=== PATIENT | female | born 1975 | race Caucasian/White ===

== ENCOUNTER 2022-03-03 14:54 | Outpatient (RCR) | payer BC, SELFPAY | END 2022-03-20 23:59 | LOC: NS 14:54 | PROVIDERS: PCP Family Medicine; Visit Provider Family Medicine | DX: Z71.3 Dietary counseling and surveillance (principal); E66.9 Obesity, unspecified; Z68.34 Body mass index [BMI] 34.0-34.9, adult | CPT/HCPCS: 97802 ==

== ENCOUNTER 2022-04-20 11:00 | Outpatient (RCR) | payer BC, SELFPAY | END 2022-04-20 23:59 | LOC: NS 11:00 | PROVIDERS: PCP Family Medicine; Visit Provider Family Medicine | DX: Z71.3 Dietary counseling and surveillance (principal); E66.9 Obesity, unspecified; Z68.34 Body mass index [BMI] 34.0-34.9, adult | CPT/HCPCS: 97803 ==

== ENCOUNTER 2022-05-04 09:20 | Outpatient (RCR) | payer BC, SELFPAY | END 2022-05-20 23:59 | LOC: NS 09:20 | PROVIDERS: PCP Family Medicine; Visit Provider Family Medicine | DX: Z71.3 Dietary counseling and surveillance (principal); E66.9 Obesity, unspecified; Z68.34 Body mass index [BMI] 34.0-34.9, adult | CPT/HCPCS: 97803 ==

== ENCOUNTER 2022-06-15 09:00 | Outpatient (RCR) | payer BC, SELFPAY | END 2022-06-20 23:59 | LOC: NS 09:00 | PROVIDERS: PCP Family Medicine; Referring Provider Family Medicine; Visit Provider Family Medicine | DX: Z71.3 Dietary counseling and surveillance (principal); E66.9 Obesity, unspecified; Z68.34 Body mass index [BMI] 34.0-34.9, adult | CPT/HCPCS: 97803 ==

== ENCOUNTER 2022-07-21 16:21 | Outpatient (RCR) | payer BC, SELFPAY | END 2022-07-21 23:59 | LOC: NS 16:21 | PROVIDERS: PCP Family Medicine; Referring Provider Family Medicine; Visit Provider Family Medicine | DX: Z71.3 Dietary counseling and surveillance (principal); E66.9 Obesity, unspecified; Z68.34 Body mass index [BMI] 34.0-34.9, adult | CPT/HCPCS: 97803 ==

== ENCOUNTER 2022-08-03 09:13 | Outpatient (RCR) | payer BC, SELFPAY | END 2022-08-20 23:59 | LOC: NS 09:13 | PROVIDERS: PCP Family Medicine; Referring Provider Family Medicine; Visit Provider Family Medicine | DX: Z71.3 Dietary counseling and surveillance (principal); E66.9 Obesity, unspecified; Z68.34 Body mass index [BMI] 34.0-34.9, adult | CPT/HCPCS: 97803 ==

== ENCOUNTER 2023-01-13 11:09 | Emergency (ER) | payer OTHER, SELFPAY ==
[2023-01-13 11:10] VITALS: BP 153/91; PULSE 114; RESP 16; TEMP 36.6; O2SAT 100; BMI 30.3
--- NOTE | 2023-01-13 11:40 | EKG12_ITS ---
Test Reason : Blood Pressure : / mmHG Vent. Rate : 113 BPM Atrial Rate : 113 BPM P-R Int : 168 ms QRS Dur : 086 ms QT Int : 350 ms P-R-T Axes : 062 011 022 degrees QTc Int : 480 ms Sinus tachycardia Otherwise normal ECG Confirmed by GUS EUCEDA, CARROL ([id number]), manager editorial KRISTINE LANDRUM ([id number]) on 01/17/2023 11:02:07 AM Referred By: DERREK Confirmed By:CARROL WEBER MD
[2023-01-13 13:05] LABS: Anion Gap 10 (5-15); BUN 11 mg/dL (7-18); BUN/Creat Ratio 18.2 RATIO (10-20); Calcium,Total 9.5 mg/dL (8.5-10.1); Chloride 105 mmol/L (98-107); EST Glomerular Filtration Rate 114 mL/min (>60); Est Glom Filt Rate - Afr Amer 138 mL/min (>60); Estimated Creatinine Clearance 123.02 ml/min; Glucose 126 mg/dL (74-106); Potassium 3.1 mmol/L (3.5-5.1); Sodium Level 139 mmol/L (136-145); Thyroid Stim Hormone (TSH) < 0.01 uIU/mL (0.358-3.74)
[2023-01-13 13:50] VITALS: BP 110/64; PULSE 97; RESP 16; O2SAT 98
--- NOTE | 2023-01-13 14:53 | EDS_ITS ---
HPI History of Present Illness Chief Complaint: Palpitations Detail of Chief Complaint: Palpitations and heart rate of 120 Informant: patient Onset/Context/Timing Onset: Today and Yesterday Context: Sudden Onset Timing: Continuous Quality: Rapid heart rate Location: Cardiovascular Current Severity: Mild Maximum Severity: Moderate Worsened by: Nothing Relieved by: Nothing Associated Symptoms Associated Symptoms: 20 to 30 pound weight loss Narrative Narrative: Patient is a 47-year-old woman who presents because of rapid heart rate. She has history of PSVT. She was seen by EP factory engineer 10 years ago. She was placed on metoprolol 12.5 mg twice daily. States recently she has had a rapid heart rate. She denies fever, chills night sweats. She does report a 20 to 30 pound weight loss with no effort. She does report sweats. She denies diarrhea. She denies abdominal pain. She denies any ocular changes or symptoms. She denies headache, ringing or ears or decreased hearing. She denies rhinorrhea, congestion or postnasal drainage. Denies sore throat. She denies chest pain. She denies symptoms. She denies neurologic symptoms. She denies gynecologic symptoms. She is status post hysterectomy. Prior similar symptoms: Yes (10 years ago when diagnosed with PSVT, heart rate was 200.) Recent Illness/Hospitalization: No PFSH PFSH Medical History Anxiety Constipation Diarrhea History of cystocele s/p bladder sling Home Medications metoprolol tartrate 50 mg tablet (Lopressor) 25 mg PO QDAY 10/28/17 [History Last Taken Unknown] sertraline 100 mg tablet (Zoloft) 100 mg PO QDAY 10/28/17 [History Last Taken Unknown] cholecalciferol (vitamin D3) 50 mcg (2,000 unit) capsule (Vitamin D3) 50 mcg PO DAILY 01/13/23 [History Last Taken Unknown] Allergy/AdvReac Type Severity Reaction Status Date / Time codeine Allergy rash Verified 11/18/17 10:29 dicyclomine Allergy rash Verified 11/18/17 10:29 latex Allergy rash Verified 11/18/17 10:29 metoclopramide [From Reglan] Allergy rash Verified 11/18/17 10:29 valacyclovir AdvReac Rash Verified 09/21/22 09:41 Family History Mother Asthma Heart disease Daughter Seizures Father Hypertension Surgical History S/P section S/P hysterectomy Social History (Updated 01/13/23 @ 14:[address] Abdulaziz Lange MD) household members: spouse Smoking Status: Never smoker alcohol intake: never substance use type: does not use ROS ROS ED Constitutional Constitutional ED: Reports sweats and weight loss; Denies chills or fever(s) Eyes Eyes: Denies blurry vision, change in vision or diplopia ENT ENT ED: Denies ear pain, rhinorrhea or sore throat Cardiovascular Cardiovascular: Reports palpitations and racing heartbeat; Denies chest pain or orthopnea Respiratory/Chest Respiratory/Chest: Denies cough, dyspnea, dyspnea on exertion or orthopnea Gastrointestinal Gastrointestinal: Denies diarrhea, nausea or vomiting Genitourinary Genitourinary ED: Denies dysuria, hematuria or urinary frequency Musculoskeletal Musculoskeletal: Denies arthralgias, back pain, myalgias or neck pain Integumentary Denies Abrasions or rash Neurologic Neurologic: Denies paresthesias or weakness Psychiatric Psychiatric: Reports anxiety; Denies depression Endocrine Endocrinology: Denies cold intolerance or heat intolerance Hematologic/Lymphatic Hematologic/Lymphatic: Reports systems reviewed and no addt'l complaints, except as documented EXAM Physical Exam Const Vital Signs: 01/13/23 11:10 01/13/23 11:26 01/13/23 11:27 Temperature 97.8 F Temperature Source Temporal Pulse Rate 114 H Respiratory Rate 16 Respiratory Effort Normal Non-Labored Normal Non-Labored Blood Pressure 153/91 H Blood Pressure Mean 111 Pulse Ox 100 Oxygen Delivery Method Room Air 01/13/23 13:50 Temperature Temperature Source Pulse Rate 97 Respiratory Rate 16 Respiratory Effort Blood Pressure 110/64 Blood Pressure Mean 79 Pulse Ox 98 Oxygen Delivery Method Room Air Positive well nourished, well developed and obese General Appearance ED: well developed and NAD; Negative for cyanotic or diaphoretic Nutritional Appearance: obese HEENT HEENT Narrative: Head is atraumatic normocephalic. Ears are normal. Nares are patent. Posterior pharynx is normal. Eyes PERRL and EOMs intact bilaterally General Eye ED: Negative for pale conjunctiva or scleral icterus Neck no lymphadenopathy, supple and no JVD Chest Wall inspection of chest normal and palpation of chest normal Resp normal respiratory effort and clear to auscultation bilaterally Cardio regular rhythm, S1 normal heart sound, S2 normal heart sound and no murmurs Rate: tachycardic GI normal to inspection, nondistended, normoactive bowel sounds, non-tender, non-d istended and no masses; Negative for hepatosplenomegaly Auscultation: normoactive bowel sounds Back/Spine no CVA tenderness Extremity normal to inspection Neuro oriented x3, CN's II-XII intact bilaterally and no sensory deficits noted Sensorium / Orientation: alert Psych mental status grossly normal Skin no rashes or lesions noted, no wounds and skin turgor normal MDM MDM MDM Narrative Medical decision making narrative: History of PSVT EKG was obtained. Since she had hypokalemia with last episode we will obtain electrolyte panel. With patient losing 20 to 30 pounds easily complained of sweats and now tachycardic not controlled by beta-jarrod will obtain TSH to evaluate for hyperthyroidism. Lab Data Attestation: I reviewed the patient's lab results. Lab results narrative: Electrolyte panel reveals mild hypokalemia. Glucose is 126. TSH is less than 0.01. Labs: Laboratory Results - last 24 hr 01/13/23 11:50 Sodium 139 Potassium 3.1 L Chloride 105 Carbon Dioxide 24.0 Anion Gap 10 BUN 11 Creatinine 0.60 Estim Creat Clear Calc 123.02 Est GFR (MDRD) Af Amer 138 Est GFR (MDRD) Non-Af 114 BUN/Creatinine Ratio 18.2 Glucose 126 H Calcium 9.5 TSH < 0.01 L Rhythm Strip Rhythm Strip: Sinus Tach Rate: 120 Ectopy: None EKG Initial EKG: Attestation: I personally reviewed and interpreted this EKG as follows: Interpretation: Sinus Tachycardia (Heart rate is 113. The EKG is otherwise unremarkable. ME interval is 160 ms. Cures duration 86 ms. QT duration 150 ms. [place] is normal. This was compared to EKG obtained 10 years ago. There was sinus tachycardia noted at that time.) Treatment and Re-Evaluation Narrative: Patient was informed of her results. Dr. Schwartz embedded software programmer was paged. Plan is to increase metoprolol and follow-up with embedded software programmer unless Dr. Schwartz would like other test ordered through the emergency department to facilitate patient's work-up and care. Patient was discharged home at 1517. We will have patient contact Dr. Schwartz's office for additional testing and work-up of hyperthyroidism. She was instructed to increase her metoprolol from 12.5 mg twice daily to 25 mg twice daily. Discharge Plan Triage Chief Complaint: Palpitations ED Provider: Abdulaziz Lange Dx/Rx/DC Orders Clinical Impression: Hyperthyroidism, Acute hypokalemia, Sinus tachycardia, Abnormal weight loss Instructions: ED Hyperthyroidism, ED Hypokalemia Prescriptions: No Action metoprolol tartrate [Lopressor] 50 mg tablet 25 mg PO QDAY sertraline [Zoloft] 100 mg tablet 100 mg PO QDAY cholecalciferol (vitamin D3) [Vitamin D3] 50 mcg (2,000 unit) Capsule 50 mcg PO DAILY Primary Care Provider: Gary Duarte Referrals: Noé Schwartz MD [Med Staff - Courtesy Staff] - 3-5 Days Gary Duarte MD [Primary Care Provider] - Activity Restrictions/Additional Instructions: Increase metoprolol to 1 tablet twice a day. Call Dr. Schwartz's office for outpatient work-up and treatment of hyperthyroidism Disposition Disposition: Home, Self Care
[2023-01-13 15:26] VITALS: BP 121/67; PULSE 94; RESP 16; O2SAT 98
== END 2023-01-13 15:26 | disposition home or self-care (01) ==
PROVIDERS: Emergency Provider Emergency Medicine; PCP Family Medicine; Visit Provider Emergency Medicine
DX: E05.90 Thyrotoxicosis, unspecified without thyrotoxic crisis or storm (principal); E87.6 Hypokalemia; R00.0 Tachycardia, unspecified; F41.9 Anxiety disorder, unspecified; E66.9 Obesity, unspecified; R63.4 Abnormal weight loss
CPT/HCPCS: 80048; 84443; 93005; 99285; A4216

== ENCOUNTER → 2023-01-17 | Outpatient (CLI) | payer OTHER, SELFPAY ==
[2023-01-17 15:43] LABS: Hemoglobin A1c 5.2 % (3.8-5.6)
[2023-01-17 16:16] LABS: Anion Gap 7 (5-15); BUN 12 mg/dL (7-18); BUN/Creat Ratio 22.8 RATIO (10-20); Calcium,Total 9.5 mg/dL (8.5-10.1); Chloride 105 mmol/L (98-107); Cholesterol 197 mg/dL (200); Creatinine, Serum 0.53 mg/dL (0.55-1.02); EST Glomerular Filtration Rate 133 mL/min (>60); Est Glom Filt Rate - Afr Amer 161 mL/min (>60); Free T3 6.9 pg/mL (2.18-3.98); Glucose 105 mg/dL (74-106); High Density Lipoprotein 65 mg/dL; Potassium 4.1 mmol/L (3.5-5.1); Sodium Level 140 mmol/L (136-145); T4 Free Direct 2.08 ng/dL (0.76-1.46); Triglycerides 166 mg/dL; Very Low Density Lipoprotein 33 mg/dL (5-40)
[2023-01-19 16:09] LABS: Thyroid Stim Immunoglob 1.35 IU/L (0.00-0.55)
[2023-01-19 18:49] LABS: Thyroid Peroxidase AB 76 IU/mL (0-34)
== END | disposition home or self-care (01) ==
LOC: LAB 14:04
PROVIDERS: Internal Medicine Endocrinology, Diabetes & Metabolism; PCP Family Medicine; Referring Provider Family Medicine; Visit Provider Family Medicine
DX: E87.6 Hypokalemia (principal); R73.9 Hyperglycemia, unspecified; Z13.220 Encounter for screening for lipoid disorders
CPT/HCPCS: 36415; 80048; 80061; 83036; 84439; 84445; 84481; 86376

== ENCOUNTER → 2023-04-12 | Outpatient (CLI) | payer OTHER, SELFPAY ==
[2023-04-17 16:07] LABS: Almond <0.10 kU/L (Class 0); Clam <0.10 kU/L (Class 0); Codfish <0.10 kU/L (Class 0); Corn <0.10 kU/L (Class 0); Egg, White <0.10 kU/L (Class 0); Garlic <0.10 kU/L (Class 0); Milk (Cow) <0.10 kU/L (Class 0); Peanut <0.10 kU/L (Class 0); SCALLOP <0.10 kU/L (Class 0); SESAME SEED <0.10 kU/L (Class 0); Shrimp <0.10 kU/L (Class 0); Soybean <0.10 kU/L (Class 0); Walnut, (Food) <0.10 kU/L (Class 0); Wheat <0.10 kU/L (Class 0)
== END | disposition home or self-care (01) ==
LOC: LAB 16:02
PROVIDERS: PCP Family Medicine; Referring Provider Otolaryngology; Visit Provider Otolaryngology
DX: T78.40XA Allergy, unspecified, initial encounter (principal)
CPT/HCPCS: 36415; 86003

== ENCOUNTER 2023-10-17 14:00 | Outpatient (RCR) | payer OTHER, SELFPAY | END 2023-10-20 23:59 | LOC: NS 14:00 | PROVIDERS: PCP Family Medicine; Referring Provider Family Medicine; Visit Provider Family Medicine | DX: Z71.3 Dietary counseling and surveillance (principal); E66.9 Obesity, unspecified; Z68.31 Body mass index [BMI] 31.0-31.9, adult; E78.5 Hyperlipidemia, unspecified | CPT/HCPCS: 97802 ==

== ENCOUNTER 2024-07-16 17:30 | Outpatient (RCR) | payer OTHER, SELFPAY ==
--- NOTE | 2024-05-10 14:21 | HP.PTEVAL ---
Patient's Visit Information Visit Information Visit Information: ANILA PRETTY is a 48 year old F referred to Physical Therapy by Dr. Starr Rogers DO with a diagnosis of ACUTE SHLD PAIN, CHRONIC R SHLD PAIN, MULTIPLE JT COMPLAINTS & SC JT PAIN R. Date of Evaluation: 05/10/24 Physical Therapist: Macy Palomares, PT, Cert MDT Visit Plan Frequency: 2x /Week Duration: 4-6 Weeks Plan: *05/18/[address] ROGERS FOR MRI RESULTS - DOCUMENT OUTCOME OF VISIT* AQUATIC THERAPY 2X'S A WK X 4-6 WKS FOR NECK AND R UE PAIN RELIEF, POSTURE TRAINING, NECK ROM AND R UE STRENGTHENING INCLUDING SCAPULAR STRENGTHENING AND STABILIZATION EX'S. INSTRUCT IN SUBMAX CERVICAL ISOMETRICS ALL PLANES TOLERATED. Subjective Subjective: Work/Leisure: CERAMIC TILE INSTALLER AT [employer] Present symptoms: R SC JOINT AREA IS THE MAIN AREA PATIENT HAS C/O PAIN. SHE REPORTS THE PAIN RADIATES INTO HER R AC JT AREA, SOMETIMES DOWN HER ARM TO HER ELBOW, WRIST AND HAND AND SOMETIMES UP INTO HER NECK. SHE DENIES HEADACHES. SHE DENIES UE NUMBNESS AND TINGLING. SHE REPORTS HER R UE GETS STIFF. SHE ALSO HAS C/O R UE WEAKNESS. PATIENT IS R HAND DOMINANT. Present since: JUN 2023 Pain Scale: WORST 5/10, LEAST 2/10 Currently: 4/10 Commenced as a result of: NO APPARENT REASON Symptoms at onset: R SC JT AREA PAIN Worse: TRYING TO HOLD A BOOK, PICKING UP 30 LB DOG IS AND REACHING ACROSS BODY ARE THE WORST, LETTING ARM HAND DOWN, TYPING, R SDLY Better: LYING WITH ARM ABOVE HEAD, ICE, T[place]ON[place] (CAN NOT TAKE NSAIDS DUE TO CARDIAC ISSUES) Disturbed sleep: YES Previous history/Previous treatment: NONE This episode: PT CONSULT ORDERED AND RA CONSULT PENDING MAY 2024. Dizziness: NO Tinnitus: NO Nausea: NO Shortness of Breath: NO Difficulty Swollowing: NO Gait: NORMAL Accidents: NO Unexplained weight loss: NO Imaging: R SHLD X-RAYS [facility] AUG 2023 AND MRI THIS WEEK [facility] SHOWING DEGENERATIVE CHANGES SC JTS ROBERT R>L AND SM EFFUSION OF R SC JT - PATIENT READ RESULTS FROM PHONE. NECK IMAGING YEARS AGO SHOWING DEGENERATION PER PATIENT REPORT. PMH: GRAVES DZ, autoimmune DZ, SVT - supraventricular tachycardia - on meds. CHRONIC LBP. FIBROMYALGIA. Objective Objective: Sitting Posture/Standing Posture: FH. RSH'S. R SC MORE PROMINANT THAN L. R SH L LOWER THAN R. Active Correction of posture: NE Other Observations: INDEP GAIT AND TRANSFERS Sensory deficit: ROBERT UE LIGHT TOUCH SENSATION GROSSLY INTACT AND SYMMETRICAL ROM deficit: ROBERT UE ROM WFL Motor deficit: R SHLD 4-/5, ELBOW 5/5, R WAREHOUSE PULLER STRENGTH 43 LBS. L SHLD 4/5, ELBOW 5/5, L 40 LBS (PATIENT IS R HAND DOMINANT). Reflexes: UNABLE TO ELICIT ROBERT UE DTR'S. Dural Signs: NEGATIVE ROBERT UE'S. Cervical Mvmt Loss: Flex: NIL Pro: NIL - INCREASES R SHLD AND UPPER ARM - W Ext: MOD Ret: GENARO - INCREASES R CHEST PAIN AND UPPER ARM PAIN TO ELBOW - W RSB: MIN LSB: MIN - INCREASES R NECK - NW R Rot: MIN - INCREASES R NECK AND SHLD - NW L Rot: MIN Postural strength: POOR Seated AND Supine Cervical Distraction Testing: NE, Palpation: Tenderness with palpation over the R SC and AC Jt regions. No acute cervical tenderness. Balance/Special Test Scores Quick DASH Score: 30.0000 Goals Goal 1:: DECREASE C/O NECK AND R UE SX'S BY AT LEAST 50% TO EASE ADL'S. Goal Time Frame: 4-6 Weeks Goal 2:: INCREASE PAINFREE NECK ROM TO EASE ADL'S. Goal Time Frame: 4-6 Weeks Goal 3:: RESTORE PAINFREE R UE STRENGTH TO 5/5 TO IMPROVE FUNCTION. Goal Time Frame: 4-6 Weeks Goal 4:: PATIENT WILL SCORE AT LEAST 10 POINTS BETTER ON QUICK DASH QUESTIONNAIRE Goal Time Frame: 4-6 Weeks Goal 5:: PATIENT WILL BE INDEP WITH A HEP FOR CONTINUED IMPROVMENT ONCE FORMAL PHYSICAL THERAPY CONCLUDES. Goal Time Frame: 4-6 Weeks Rehabilitation Potential Physical Therapy Diagnosis: R SHOULDER TENDERNESS AND WEAKNESS. R NECK PAIN, STIFFNESS AND POSTURAL WEAKNESS. Rehabilitation Potential: Fair Anticipated Interventions Patient/Client Instruction: Educate patient on: Condition, Plan of Care and Risk Factors For the Purpose of:: To improve self management Therapeutic Exercise to Include: Strength training, Body mechanics, Postural training, Flexibilty training, Neuromotor development, In an aquatic setting, Active ROM and Scapular Strength/Stabilization For the Purpose of:: To decrease pain, To increase ROM, To improve muscle performance and motor function, To increase tolerance to activity/condition/position, To improve ability of physical actions for home/community/work/leisure and To improve self management Text: Thank you for the opportunity to evaluate your patient. For Medicare and Medicare HMO plans, please review the plan of care and approve it. It will need to be FAXED BACK to us at [phone] for Medicare purposes. For Medicare only, by signing this I certify the plan of care. Please let me know if there are questions or concerns regarding this plan of care. Physician Signature: Date:
--- NOTE | 2024-06-08 09:27 | HP.PTREVAL_ITS ---
Re-Evaluation Intro: Dr. Starr Rogers, DO, It has been my pleasure to treat ANILA PRETTY over the last 7 visits for ACUTE SHLD PAIN, CHRONIC R SHLD PAIN, MULTIPLE JT COMPLAINTS & SC JT PAIN R. Please see the progress note below for an update on the physical therapy plan of care! Subjective Subjective: She is not getting worse but not sure how much progress she has had so far. She feels she wants to continue with PT to see how far she can go. Neck pain is the same. Objective Objective/Function: Neck AROM SB B 75%, Ext 50%, Flexion 100%, Rot B 80% (pain with SB B and pain with rotation to the L) UE MMT: R shoulder ER 4-/5, IR 4+/5, FLex 4-/5, ABD 4/5 (pain with ER, flex and ABD) Plan Plan Plan: AQUATIC THERAPY 2X'S A WK X 4-6 WKS FOR NECK AND R UE PAIN RELIEF, POSTURE TRAINING, NECK ROM AND R UE STRENGTHENING INCLUDING SCAPULAR STRENGTHENING AND STABILIZATION EX'S. INSTRUCT IN SUBMAX CERVICAL ISOMETRICS ALL PLANES TOLE RATED. Balance/Gait/Functional tests Balance/Special Test Scores Quick DASH Score: 22.7250 Goals Goals Goal 1:: DECREASE C/O NECK AND R UE SX'S BY AT LEAST 50% TO EASE ADL'S. Goal Time Frame: 4-6 Weeks Goal Progress: Progressing Goal 2:: INCREASE PAINFREE NECK ROM TO EASE ADL'S. Goal Time Frame: 4-6 Weeks Goal 3:: RESTORE PAINFREE R UE STRENGTH TO 5/5 TO IMPROVE FUNCTION. Goal Time Frame: 4-6 Weeks Goal 4:: PATIENT WILL SCORE AT LEAST 10 POINTS BETTER ON QUICK DASH QUESTIONNAIR E Goal Time Frame: 4-6 Weeks Goal 5:: PATIENT WILL BE INDEP WITH A HEP FOR CONTINUED IMPROVMENT ONCE FORMAL PHYSICAL THERAPY CONCLUDES. Goal Time Frame: 4-6 Weeks Anticipated Interventions Anticipated Interventions Patient/Client Instruction: Educate patient on: Condition, Plan of Care and Risk Factors For the Purpose of:: To improve self management Therapeutic Exercise to Include: Strength training, Body mechanics, Postural training, Flexibilty training, Neuromotor development, In an aquatic setting, Active ROM and Scapular Strength/Stabilization For the Purpose of:: To decrease pain, To increase ROM, To improve muscle performance and motor function, To increase tolerance to activity/condition/position, To improve ability of physical actions for home/community/work/leisure and To improve self management Re-Evaluation Ending Re-evaluation ending: Please do not hesitate to contact me at [phone] by phone or if you have questions or concerns regarding this new plan of care! Sincerely, Di Fair, MPT
--- NOTE | 2024-07-16 19:54 | HP.PTDCSUM ---
Discharge Summary D/C summary: It has been my pleasure to treat ANILA PRETTY referred by Dr. Starr Rogers DO, with the diagnosis of ACUTE SHLD PAIN, CHRONIC R SHLD PAIN, MULTIPLE JT COMPLAINTS & SC JT PAIN R for a total of 13 visit(s). Discharge Date: 07/16/24 Please see the following information for a summary of their discharge status. 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 States her schedule doesn't allow her to keep coming to PT but she has a pool program now and she is hoping if she continues the ex's it will keep her pain at bay. Pain R SC Joint: Pain Intensity (Out of 10): 3 Overall Improvement % Improvement: 70 Objective Objective/Function: THIS PATIENT HAS MADE GOOD PROGRESS WITH PT AND IS NOW INDEP WITH A POOL EX PROGRAM. UPON EXAM TODAY: Motor deficit: R SHLD 5/5, ELBOW 5/5, R MARINE ENGINE MACHINIST STRENGTH 51 LBS. L SHLD 5/5, ELBOW 5/5, L 46 LBS (PATIENT IS R HAND DOMINANT). Cervical Mvmt Loss: Flex: NIL Pro: NIL - INCREASES R SC JT PAIN - NW Ext: MIN Ret: MOD RSB: MIN LSB: MIN R Rot: NIL L Rot: NIL Goals Goal 1:: DECREASE C/O NECK AND R UE SX'S BY AT LEAST 50% TO EASE ADL'S. Goal Progress: Goal Met Goal 2:: INCREASE PAINFREE NECK ROM TO EASE ADL'S. Goal Progress: Goal Met Goal 3:: RESTORE PAINFREE R UE STRENGTH TO 5/5 TO IMPROVE FUNCTION. Goal Progress: Goal Met Goal 4:: PATIENT WILL SCORE AT LEAST 10 POINTS BETTER ON QUICK DASH QUESTIONNAIRE Goal Progress: Progressing Goal 5:: PATIENT WILL BE INDEP WITH A HEP FOR CONTINUED IMPROVMENT ONCE FORMAL PHYSICAL THERAPY CONCLUDES. Goal Progress: Goal Met Plan Plan: D/C to indep pool program. Patient agreeable. D/C Information d/c sentence: If there are questions or concerns regarding this patient's physical therapy, please feel free to call me at [phone]. Thank you for the referral of this patient. Sincerely, Macy Palomares, PT, Cert MDT Balance/Gait/Functional tests Balance/Special Test Scores Quick DASH Score: 11.3625 Improvement % Improvement: 70
== END 2024-07-16 19:00 | disposition home or self-care (01) ==
LOC: PT 17:30
PROVIDERS: PCP Family Medicine; Referring Provider Orthopaedic Surgery; Visit Provider Orthopaedic Surgery
DX: M25.511 Pain in right shoulder (principal); M25.9 Joint disorder, unspecified; G89.29 Other chronic pain
CPT/HCPCS: 97113; 97162; 97530